=== PATIENT | female | born 1990 | race Caucasian/White ===

== ENCOUNTER → 2016-04-29 | Outpatient (CLI) | payer OTHER ==
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
== END ==
LOC: RADCTMAIN 15:33
PROVIDERS: ATTEND Family Medicine
DX: S09.90XA Unspecified injury of head, initial encounter (principal)
CPT/HCPCS: 70450

== ENCOUNTER → 2016-07-08 | Outpatient (CLI) | payer OTHER ==
--- NOTE | 2016-07-08 11:54 | US ---
EXAMINATION TYPE: US thyroid st tissue head/neck DATE OF EXAM: 07/08/2016 11:09 AM COMPARISON: NONE CLINICAL HISTORY: 26-year-old female R07.0 Pain in throat. TECHNIQUE: Multiple sonographic images of the thyroid gland were obtained. FINDINGS: Right Lobe: 4.9 x 1.5 x 1.3 cm Overall Parenchyma: homogenous Left Lobe: 4.2 x 1.4 x 1.1 cm Overall Parenchyma: homogeneous Isthmus Thickness: 0.2 cm No discrete nodule is seen. Bilateral neck scanned, no evidence of lymphadenopathy. IMPRESSION: Normal homogeneous appearance to the thyroid gland with measurements as above. No discrete nodule.
== END | disposition home or self-care (01) ==
LOC: RADUSWWP 10:34
PROVIDERS: ATTEND Family Medicine
DX: R07.0 Pain in throat (principal)
CPT/HCPCS: 76536